=== PATIENT | female | born 1940 | race Caucasian/White ===

== ENCOUNTER 2017-09-09 01:09 | Emergency (ER) | payer MEDICARE, BC ==
--- NOTE | 2017-09-09 01:25 | Emergency Department Record ---
History of Present Illness - General Chief Complaint: Wound, puncture Stated Complaint: LACERATION Time Seen by Provider: 09/09/17 01:19 Source: Patient Mode of Arrival: Ambulatory Limitations: No limitations - History of Present Illness Initial Commments: 76 yo female presents to ED for evaluation of bleeding from the RLE that has no stopped. Patient reports that she scratched a small skin lesion on the anterior aspect of her lower extremity which began to bleed approximately 20 minutes ago. Patient applied a band-aid which stopped her bleeding symptoms. Patient denies the use of anticoagulation medications. Onset/Timin -: Minutes(s) Extremity Location: Right: Lower leg Place: Home Treatments Prior to Arrival: Bandage - Lueders Coma Scale Eye Response: (4) Open spontaneously Motor Response: (6) Obeys commands Verbal Response: (5) Oriented Lior Total: 15 Review of Systems Constitutional: Denies: Chills, Fever, Malaise, Night sweats Eyes: Denies: Eye discharge, Eye pain ENT: Denies: Congestion, Ear pain, Epistaxis Respiratory: Denies: Cough, Dyspnea Cardiovascular: Denies: Chest pain, Dyspnea on exertion Endocrine: Denies: Fatigue, Heat or cold intolerance Gastrointestinal: Denies: Abdominal pain, Nausea, Vomiting Genitourinary: Denies: Incontinence, Retention Musculoskeletal: Denies: Arthralgia, Back pain, Gout, Joint swelling Skin: Reports: Other (bleeding from the right lower extremity). Denies: Bruising, Change in color Neurological: Denies: Abnormal gait Psychiatric: Denies: Anxiety Hematological/Lymphatic: Denies: Anemia, Blood Clots Physical Exam - General General Appearance: Alert, Oriented x3, Cooperative, No acute distress Limitations: No limitations - Head Head exam: Atraumatic, Normocephalic, Normal inspection Head exam detail: negative: Abrasion, Contusion, Ragsdale's sign, General tenderness, Hematoma, Laceration - Eye Eye exam: Normal appearance. negative: Conjunctival injection, Periorbital swelling, Periorbital tenderness, Scleral icterus - ENT Ear exam: negative: Auricular hematoma, Auricular trauma Nasal Exam: negative: Active bleeding, Discharge, Dried blood, Foreign body Mouth exam: negative: Drooling, Laceration, Muffled voice, Tongue elevation - Neck Neck exam: Normal inspection. negative: Meningismus, Tenderness - Respiratory Respiratory exam: Normal lung sounds bilaterally. negative: Rales, Respiratory distress, Rhonchi, Stridor - Cardiovascular Cardiovascular Exam: Regular rate, Normal rhythm, Normal heart sounds - GI/Abdominal GI/Abdominal exam: Soft. negative: Rebound, Rigid, Tenderness - Rectal Rectal exam: Deferred - exam: Deferred - Extremities Extremities exam: Other (<0.5 cm lesion to the anterior aspect of the right lower extremity is present, no active bleeding.). negative: Calf tenderness, Pedal edema, Tenderness - Back Back exam: Denies: CVA tenderness (R), CVA tenderness (L) - Neurological Neurological exam: Alert, Normal gait, Oriented X3 - Psychiatric Psychiatric exam: Normal affect, Normal mood - Skin Skin exam: Normal color. negative: Abrasion Type of lesion: negative: abrasion Course Vital Signs 09/09/17 01:15 Temperature 98.3 F Pulse Rate [ 105 H Pulse Ox Probe] Respiratory 20 Rate Blood Pressure 172/71 [Left Arm] Pulse Ox 96 - Reevaluation(s) Reevaluation #1: 09/09/17 01:23 Procedure Note: Lesion (<0.5cm) to the anterior lower extremity was cleaned and dried, Dermabond was applied. Hemostasis was achieved, and the patient appears stable for discharge at this time. Disposition Disposition: Discharge Clinical Impression: Abrasion Disposition: Home, Self-Care Condition: (2) Stable Instructions: Skin Adhesive Care (ED) Additional Instructions: Return to ED if your symptoms worsen or if you have any concerns. Dermabond will release in 3-5 days. Follow-up with your family doctor in 3-5 days as directed. Time of Disposition: 01:26 Quality - Quality Measures Quality Measures: N/A - Blood Pressure Screening Does Patient Have Any of the Following: No Blood Pressure Classification: Hypertensive Reading Systolic Measurement: 172 Diastolic Measurement: 71 Screening for High Blood Pressure: < First Hypertensive BP, F/U Documented > [ [id number]] First Hypertensive Follow-up Interventions: Referral to alternative/primary care provider.
== END 2017-09-09 01:44 | disposition home or self-care (01) ==
LOC: ER 01:09
DX: S80.811A Abrasion, right lower leg, initial encounter (principal); W22.8XXA Striking against or struck by other objects, initial encounter; F17.210 Nicotine dependence, cigarettes, uncomplicated; Y92.009 Unspecified place in unspecified non-institutional (private) residence as the place of occurrence of the external cause
CPT/HCPCS: 99282